=== PATIENT | female | born 1940 | race Caucasian/White ===

== ENCOUNTER 2021-12-28 23:13 | Inpatient (IN) ==
[2021-12-28] MEDS ORDERED: ONDANSETRON INJ 2 MG/ML 2 ML VIAL IV STA (23:36)
[2021-12-28] MEDS ORDERED: SODIUM CHLORIDE 0.9% 500 ML IV STA (23:36)
[2021-12-28] MEDS ORDERED: ACETAMINOPHEN 65 ML IV ONE (23:37)
[2021-12-28 23:48] LABS: Basophils # (auto) 0.09 K/uL (0-0.2); Basophils % (auto) 0.6 %; Eosinophils # (auto) 0.14 K/uL (0-0.50); Eosinophils % (auto) 0.9 %; Hematocrit (blood only) 42.4 % (34.1-44.9); Hemoglobin 14.6 g/dl (12.0-16.0); Immature Granulocytes # (auto) 0.05 K/uL (0.00-0.02); Immature Granulocytes % (auto) 0.3 %; Lymphocytes # (auto) 1.77 K/uL (1.2-3.4); Mean Corpuscular Hemoglobin 30.5 pg (25.0-34.0); Mean Corpuscular Hgb Conc 34.4 g/dL (32.0-36.0); Mean Corpuscular Volume 88.5 fL (80.0-100.0); Mean Platelet Volume 9.6 fL (9.4-12.3); Monocytes % (auto) 6.8 %; Neutrophils # (auto) 11.73 K/uL (1.4-6.5); Neutrophils % (auto) 79.4 %; Platelet Count 280 K/uL (130-400); RDW Coefficient of Variation 11.9 % (11.5-14.5); Red Blood Count 4.79 M/uL (3.93-5.22); White Blood Count 14.78 K/ul (4.8-10.8)
--- NOTE | 2021-12-28 23:51 | Emergency Department Note ---
History of Present Illness General Chief complaint: Abdominal Pain Stated complaint: ABDOMINAL PAIN, VOMITING, POSSIBLE INTESTINE BLOCK Time Seen by Provider: 12/28/21 23:28 History of Present Illness Maximum Pain Intensity: 5 This 81-year-old presents to the ER complaining of abdominal pain concerns for another bowel obstruction Location: Abdomen Quality: Painful Severity: Moderate Duration: Today Timing: Today Context: Patient was concerned and came in Modifying factors: better with rest; worse with activity patient states she had 2 other bowel obstructions. She is required surgery for both. She had a prior hysterectomy. Patient denies chest pain, dyspnea, feve rs, diarrhea. Past Med/Surg History Medical History A-fib High blood pressure Surgical History History of hysterectomy Social History Smoking Status: Never smoker Feels Safe at Home: Yes Review of Systems A total of 10 systems reviewed and were otherwise negative Physical Exam Vital Signs Vital Signs - 24 hr 12/28/21 23:17 12/29/21 00:55 12/29/21 00:56 Temperature 35.6 C L Temperature Source Temporal Artery Scan Pulse Rate 117 H Pulse Rate [Apical] 89 Respiratory Rate 18 16 Respiratory Effort / Characteristics Non-Labored Spontaneous Non-Labored Spontaneous Respiratory Depth Normal Normal Blood Pressure 161/99 H Blood Pressure [Left Arm] 152/82 H Blood Pressure Mean 119 Blood Pressure Mean [Left Arm] 105 Pulse Oximetry 95 96 97 Oxygen Delivery Method Room Air Room Air Room Air Sepsis Recent Fever Within 48 Hours No Sepsis New/Unexplained Change in Mental Status No Sepsis Action Taken by Nursing No Action Required 12/29/21 01:00 Temperature Temperature Source Pulse Rate 85 Pulse Rate [Apical] Respiratory Rate 12 Respiratory Effort / Characteristics Respiratory Depth Blood Pressure 142/85 H Blood Pressure [Left Arm] Blood Pressure Mean 104 Blood Pressure Mean [Left Arm] Pulse Oximetry 95 Oxygen Delivery Method Room Air Sepsis Recent Fever Within 48 Hours Sepsis New/Unexplained Change in Mental Status Sepsis Action Taken by Nursing VITALS: Vitals are noted on the nurse's note and reviewed by myself. Vital signs reviewed. GENERAL: Elderly female with her , in no acute distress, nondiaphoretic, well-developed well-nourished. SKIN: The skin was without rashes, erythema, edema, or bruising. There is no tenting of the skin. Capillary reflex less than 2 seconds. HEAD: Normocephalic atraumatic. EARS: External auditory canals clear, EYES: Pupils equal round and reactive to light and accommodation. Conjunctivae without injection, sclerae without icterus. Extraocular movements intact. NOSE: Patent, turbinates without inflammation or discharge. MOUTH: Mucous membranes moist. Pharynx without erythema or exudate. Uvula midline. Airway patent. Tongue does not deviate. NECK: Supple without nuchal rigidity. No lymphadenopathy. No thyromegaly. Cervical spine is nontender. No JVD. HEART: Regular rate and rhythm LUNGS: Clear to auscultation bilaterally without wheezes, rales or rhonchi. No retractions or accessory muscle use. ABDOMEN: Positive bowel sounds x 4. Normal tympanic percussion. Soft, diffuse tenderness, without masses or organomegaly. Way sign negative. No guarding or rebound tenderness. No CVA tenderness MUSCULOSKELETAL: No muscle atrophy, erythema, or edema noted. NEURO: Patient was alert and oriented to person place and time. Normal sensation to light and sharp touch. No focal neurological deficits. Course Administered Medications Discontinued Medications Sodium Chloride (Nss) 500 mls @ 999 mls/hr IV .Q31M STA Stop: 12/29/21 00:06 Last Infusion: 12/29/21 01:12 Dose: 0 mls/hr Documented By: Admin: 12/29/21 00:20 Dose: 999 mls/hr Documented By: DANY Acetaminophen (Ofirmev) 65 mls @ 200 mls/hr IV NOW ONE; Protocol Stop: 12/28/21 23:56 Last Infusion: 12/29/21 01:12 Dose: 0 mls/hr Documented By: Admin: 12/29/21 00:39 Dose: 200 mls/hr Documented By: DANY Ondansetron HCl (Ondansetron Inj 2 Mg/Ml 2 Ml Vial) 4 mg IV NOW STA Stop: 12/28/21 23:37 Last Admin: 12/28/21 23:48 Dose: 4 mg Documented By: DANY Medical Decision Making Medical Records Attestation: I reviewed the patient's medical records. Home Medications Current Medication List: was personally reviewed by me Laboratory Data Attestation: I reviewed the patient's lab results. Result diagrams: 12/28/21 23:30 12/28/21 23:30 Lab Results 12/28/21 12/28/21 12/29/21 Range/Units 23:30 23:30 00:38 WBC 14.78 H (4.8-10.8) K/ul RBC 4.79 (3.93-5.22) M/uL Hgb 14.6 (12.0-16.0) g/dl Hct 42.4 (34.1-44.9) % MCV 88.5 (80.0-100.0) fL MCH 30.5 (25.0-34.0) pg MCHC 34.4 (32.0-36.0) g/dL RDW Std Deviation 39.0 (36.4-46.3) fL RDW Coeff of Lisa 11.9 (11.5-14.5) % Plt Count 280 (130-400) K/uL MPV 9.6 (9.4-12.3) fL Immature Gran % (Auto) 0.3 % Neut % (Auto) 79.4 % Lymph % (Auto) 12.0 % [place] % (Auto) 6.8 % Eos % (Auto) 0.9 % Baso % (Auto) 0.6 % Neut # (Auto) 11.73 H (1.4-6.5) K/uL Lymph # (Auto) 1.77 (1.2-3.4) K/uL [place] # (Auto) 1.00 H (0.24-0.82) K/uL Eos # (Auto) 0.14 (0-0.50) K/uL Baso # (Auto) 0.09 (0-0.2) K/uL Immature Gran # (Auto) 0.05 H (0.00-0.02) K/uL Sodium 135 L (136-145) mmol/L Potassium 4.1 (3.5-5.1) mmol/L Chloride 96 L (98-107) mmol/L Carbon Dioxide 28 (21-32) mmol/L Anion Gap 11 (3-11) BUN 31 H (6-23) mg/dl Creatinine 1.16 (0.6-1.2) mg/dl Est Cr Clr Drug Dosing 25.9 ml/min Est GFR ( Amer) 50.4 ml/min Est GFR (Non-Af Amer) 43.5 ml/min BUN/Creatinine Ratio 26.7 H (10-20) Glucose 138 H (70-99(Fasting)) mg/dl Lactate 0.6 (0.4-2.0) mmol/L Calcium 10.0 (8.5-10.1) mg/dl Total Bilirubin 0.5 (0.2-1.0) mg/dl AST 18 (13-39) U/L ALT 13 (7-52) U/L Alkaline Phosphatase 114 H (34-104) U/L Total Protein 7.5 (6.0-8.3) gm/dl Albumin 4.5 (3.4-5.0) gm/dl Globulin 3.0 (2.5-4.0) gm/dl Albumin/Globulin Ratio 1.5 (0.9-2) Lipase 57 (11-82) U/L Imaging Data Attestation: I personally reviewed and interpreted this imaging study as follows: MDM Narrative Prior records/ancillary studies reviewed. Triage Nursing notes reviewed. Additional history obtained from family. The patient's history was concerning for abdominal pain. Differential diagnosis: Etiologies such as appendicitis, diverticulitis, PUD, biliary pathology, UTI, pancreatitis, obstruction, mesenteric ischemia, aortic pathology, infections, inflammatory bowel disease, renal colic, as well as others were entertained. Physical examination findings: As above. ER treatment provided: An order was placed for continuous cardiac monitoring. The monitor shows a rate of 60-1 50 with a sinus rhythm. IV fluids, Tylenol Patient declines NG tube, this was deferred to surgery On reassessment the patient felt better. Diagnostics interpreted by me: The labs revealed leukocytosis, negative lactic Imaging studies: CT ABDOMEN & PELVIS With Contrast: High-grade small bowel obstruction, consisting of dilated small bowel measuring up to 4.0 cm within the pelvis. Large anastomotic suture line noted in the right mid abdomen. Transition point within the mid abdomen at the level of the umbilicus on coronal image 44. Surgical evaluation recommended. Other findings: No focal hepatic lesion. Contracted gallbladder. Normal spleen, adrenal glands, and pancreas. No hydronephrosis or delayed nephrogram. Decompressed urinary bladder. Radiologist: Varghese Madden MD Consultation: A consultation was placed with the surgical team. The case was discussed and diagnostics were reviewed. The patient was evaluated in the ER for further treatment. Exam and history seem consistent with recurrent bowel obstruction. Surgery was consulted. Medicine was consulted. Patient will be admitted to the medical service. Lactic was negative. Mild leukocytosis. Patient was not actively vomiting. By the evaluation outlined above emergent etiologies such as appendicitis, diverticulitis, PUD, biliary pathology, UTI, pancreatitis, mesenteric ischemia, aortic pathology, infections, inflammatory bowel disease, renal colic, as well as others were deemed relatively unlikely. The pt informed about the findings as listed above. All questions were answered and pleased with the treatment. The chart was completed utilizing [employer] Speech voice recognition software. Grammatical errors, random word insertions, pronoun errors, and incomplete sentences are an occassional consequence of this system due to software limitations, ambient noise, and hardware issues. Any formal questions or concerns about the content, text, or information contained within the body of this dictation should be directly addressed to the physician medical record assistant for clarification. Impression & Plan Small bowel obstruction Discharge Plan Visit Data Chief Complaint: Abdominal Pain Stated Complaint: ABDOMINAL PAIN, VOMITING, POSSIBLE INTESTINE BLOCK ED Provider: Sky Sibley ED Midlevel Provider: Dixie Servin Discharge Problem: Small bowel obstruction Patient Disposition: Admitted As Inpatient Condition: Fair Forms Stand Alone Forms: [facility] Referrals Referrals: PCP,NO [Physician] -
[2021-12-29 00:01] LABS: Albumin Globulin Ratio 1.5 (0.9-2); Albumin Level 4.5 gm/dl (3.4-5.0); BUN Creatinine Ratio 26.7 (10-20); Bilirubin,Total 0.5 mg/dl (0.2-1.0); Creatinine Clr Calc Pharmacy 25.9 ml/min; Est GFR (African American) 50.4 ml/min; Est GFR (Non-African American) 43.5 ml/min; Potassium 4.1 mmol/L (3.5-5.1); Total Protein 7.5 gm/dl (6.0-8.3)
[2021-12-29] MEDS ORDERED: OPTIRAY 300 100mL IV ONE (00:54)
--- NOTE | 2021-12-29 02:29 | Surgery Consultation ---
Date of Consultation December 29, 2021 Assessment & Plan (1) Small bowel obstruction: I discussed with the treating emergency room clinician and she is having the patient admitted on the hospitalist service. From a surgical perspective we recommend proceeding as follows: Implement n.p.o. status Provide IV fluid for hydration Recommend placement of an NG tube to low continuous suction. I explained to the patient that this may help alleviate some of her abdominal bloating/symptomatology. Consideration can be given to removing the NG tube upon improvement of her abdominal exam and return of bowel function. Once NG tube has been removed and bowel function has returned diet can be advanced beginning with clear liquids Would recommend holding patient's Xarelto until it is certain the patient would not require any procedural intervention Provide analgesics Provide antiemetics Additional plans as directed by primary service Supervising Physician Co-Signing Physician Notes Patient seen and examined, labs and imaging reviewed, agree with above. 81-year-old female with history of multiple abdominal surgeries including 2 prior laparotomies with lysis of adhesions and a small bowel resection 1 year ago presented with a small bowel obstruction. NG tube was placed. She is currently afebrile stable vitals. Her abdomen is not painful and she has passed a small amount of flatus. She still feels blocked up and bloated. On exam she is nontender with mild distention. Large midline scar. WBC downtrending. CT personally reviewed and interpreted by myself and agree with the assessment of a small bowel obstruction without evidence of ischemia. We will continue with nonoperative management. Surgery will continue to follow. History of Present Illness Reason for Consultation: Small bowel obstruction History of Present Illness This is an 81-year-old female with an extensive abdominal surgical history. The patient presented to the emergency department secondary to feeling "bloated." Patient says that she was feeling fine on 12/28/2021 throughout the day but in the evening on the same day she began to feel bloated and experienced some nausea and vomiting. She said that she really did not have much in the way of abdominal pain. She said she did have a bowel movement on Sunday evening but since arrival to the emergency department she has not had any bowel movement or passed any flatus. She continues to have nausea vomiting since arrival to the emergency department. Patient does report that she had a colonoscopy most recently in 2012 and she believes they may have performed a polypectomy. Concerning previous surgeries the patient says in 2012 she underwent a hysterectomy which was complicated by bleeding which required abdominal reexploration. Patient says she subsequent developed a small bowel obstruction in 2013 that had to be managed surgically. She said that she did not require any resection of bowel or small bowel at that time. She says she had an additional small bowel obstruction in October 2020 at which time the patient had to be managed operatively and she believes they took out several inches of her small bowel at that time. She notes her previous surgeries were performed at [facility] in [place], [place]. In the emergency department the patient had labs and imaging which I independently reviewed. A CT scan of the abdomen pelvis showed findings concerning for high-grade small bowel obstruction. Patient had some dilated small bowel loops measuring up to 4 cm within the pelvis. There is a large anastomotic suture line noted in the right mid abdomen. The transition point of small bowel obstruction appeared to be in the mid abdomen at the level of the umbilicus. Patient's stomach also appeared to be distended and fluid-filled on the study. Labs include a CBC her white blood cell count was elevated at 14.7. Hemoglobin, hematocrit, and platelet count were normal. Chemistry profile showed sodium was 135 with a normal potassium. BUN was 31 with a creatinine of 1.1. Lactic acid level was not elevated. There is no significant elevation of LFTs other than a slight elevation of the alkaline phosphatase at 114. Lipase was normal. The patient does add that she has chronic kidney disease, stage III and is also treated for atrial fibrillation. For her atrial fibrillation she does take Xarelto and she did take it yesterday aborted. At the time of my interview the patient was resting comfortably in bed and she was in no distress. Home Medications Medication Instructions Recorded Confirmed Type digoxin 125 mcg (0.125 mg) tablet 125 mcg PO DAILY 12/29/21 12/29/21 History diltiazem HCl 360 mg 360 mg PO DAILY 12/29/21 12/29/21 History capsule,extended release 24 hr lisinopril 5 mg tablet 5 mg PO DAILY 12/29/21 12/29/21 History rivaroxaban 15 mg tablet (Xarelto) 15 mg PO QPM 12/29/21 12/29/21 History Patient History Medical History A-fib High blood pressure Surgical History History of hysterectomy Social History Smoking Status: Never smoker Hx Alcohol Use: No Hx Substance Use: No Preferred Language: Pashto Communication Ability: Effective Rack Puncher Required: No Beliefs That Will Affect Care: None Current Living Situation: Spouse Current Living Situation Comment: Lives in private home with Other Information That Helps Us Care for You: No Feels Safe at Home: Yes Safety Concerns: Feels Safe At This Time Assistive Devices: None Review of Systems Constitutional: no fever and no chills Eyes: no eye pain Ear, Nose, Mouth, Throat: no ear pain Respiratory: no cough Cardiovascular: no chest pain Gastrointestinal: as per Subjective / HPI, + nausea and + vomiting; no abdominal pain Genitourinary: no dysuria Musculoskeletal: no back pain Integumentary: no rash Neurologic: no localized weakness Physical Exam Constitutional: WD/WN, vitals as above Eyes: no conjunctival abnormality ENMT: Ears: no external ear abnormality Neck: trachea midline Respiratory: normal respiratory effort; no respiratory distress and no labored breathing Cardiovascular: Rate/Rhythm: + irregularly irregular Gastrointestinal (Abdomen): The patient had a well-healed midline incision in her abdomen. The patient's abdomen and had mild to moderate distention and was tympanic to percussion. There is no rebound tenderness or guarding. There is minimal to no pain with palpation. Musculoskeletal: No calf tenderness. Pedal pulses are palpable. Skin: no rashes Neurologic: moves all extremities Psychiatric: A+Ox3, euthymic affect Results & Data ([facility]) Vital Signs (Past 12 Hours) Vital Signs Temp Pulse Pulse Resp BP BP Pulse Ox 12/29/21 01:00 85 12 142/85 H 95 12/29/21 00:56 89 16 152/82 H 97 12/29/21 00:55 96 12/28/21 23:17 35.6 C L 117 H 18 161/99 H 95 O2 Del Method 12/29/21 01:00 Room Air 12/29/21 00:56 Room Air 12/29/21 00:55 Room Air 12/28/21 23:17 Room Air PG Care Time/CCT Total # of Minutes Spent Total Time Spent with Patient: Total time spent is greater than 50% in coordination of care (as documented) at patient's floor/unit and/or counseling patient: Coding Level of Care Code 65718 Inpt Consult Level 5 Diagnoses Small bowel obstruction K56.609
--- NOTE | 2021-12-29 04:31 | History and Physical Report ---
DATE OF ADMISSION: 12/29/2021. CHIEF COMPLAINT: Abdominal pain, small bowel obstruction. HISTORY OF PRESENT ILLNESS: An 81-year-old female with past medical history significant for pancreatic cyst, Lung nodule, chronic kidney disease stage III, history of hypertension, history of permanent atrial fibrillation, history of moderate mitral regurgitation, mild aortic regurgitation, moderate tricuspid regurgitation ,right ventricle, cardiac abnormality, asymptomatic proteinuria, osteoporosis, history of endometrial cancer, status post surgery, history of COVID-19, presents with abdominal pain. The patient had two surgeries for small bowel obstructions. After the second surgery, she moved to [place] with her to be close to her daughter. Symptoms started with a feeling of bloating of the abdomen and nausea. The patient was worried about obstruction and came to the hospital. CAT scan is showing a high-grade obstruction, seen by surgery. Recommended conservative management at this time. The patient denies any headache. No blurred visions. No neck pain. No sore throat. Always has some runny nose. No cough. No chest pain, no shortness of breath. Mild abdominal discomfort. She states she moved her bowels before she came to the hospital. Normal bladder movements. Ambulates okay. ALLERGIES: PROPOFOL. PAST MEDICAL HISTORY: As mentioned above. PAST SURGICAL HISTORY: Laparoscopic excision of a lesions in 2013 and 2020. In 2012, had total abdominal hysterectomy with bilateral salpingo-oophorectomy and omentectomy for endometrial cancer. MEDICATIONS: Digoxin 125 mcg p.o. daily, diltiazem 360 mg p.o. daily, lisinopril 5 mg p.o. daily, Xarelto 15 mg p.o. p.m. FAMILY HISTORY: Significant for cousin has breast cancer, father has colon cancer, mother has lung cancer. SOCIAL HISTORY: , no smoking, no alcohol, no drug use. REVIEW OF SYSTEMS: As per HPI. Rest of the review of systems is negative. PHYSICAL EXAMINATION: GENERAL: The patient is old and frail, not in acute distress. VITAL SIGNS: Temperature 35.6, pulse 90, respiratory rate 12, blood pressure 127/76, and oxygen 95% on room air. HEENT: Pupils equal, round, and reactive to light. Oral mucosa moist. NECK: No JVD. No masses. CARDIOVASCULAR: S1 and S2 heard. Regular rate and rhythm. No murmur, no gallop. RESPIRATORY SYSTEM: Normal AP diameter. No accessory muscle use. No wheezing, no crackles. ABDOMEN: Soft, bowel sounds present, nontender, no distention. CENTRAL NERVOUS SYSTEM: Cranial nerves II through XII are grossly intact, nonfocal. EXTREMITIES: No edema, no erythema. LABORATORY DATA: WBC 14.7, hemoglobin 14.6, hematocrit 42.4, platelets 280. Sodium 135, potassium 4.1, chloride 96, bicarbonate 28, BUN 31, creatinine 1.1, serum glucose 138, lactate 0.6, calcium 10, total bilirubin 0.5, AST 18, ALT 13, alkaline phosphatase 114. Lipase 57. SARS-CoV-2 rapid test negative. IMAGING DATA: CT scan of the abdomen and pelvis with contrast showed high-grade small-bowel obstruction consistent with dilated small bowel measuring up to 4 cm within the pelvis. ASSESSMENT AND PLAN: This is an 81-year-old female who presents with abdominal pain and nausea and found to have small bowel obstruction. 1. High-grade small bowel obstruction with history of abdominal surgeries, history of surgery for bowel obstruction 2 times. Seen by surgery in the ER. Ordered NG tube, will keep her n.p.o., IV fluids, IV antiemetics, IV pain medication p.r.n. Closely monitor in the hospital. 2. History of permanent atrial fibrillation: Currently n.p.o. The patient is on diltiazem and digoxin at home. We will place her on IV Lopressor p.r.n. and closely monitor. Restart p.o. medication when able to. Holding Xarelto in anticipation of any procedures. 3. Hypertension: On diltiazem and lisinopril. Currently NPO. IV Lopressor p.r.n. Will monitor the blood pressure. 4. History of valvular heart disease with moderate mitral regurgitation and moderate tricuspid regurgitation: Will monitor for any volume overload. 5. History of endometrial cancer: Status post surgery. 6. Deep venous thrombosis prophylaxis: Currently on sequential compression devices. DISPOSITION: Closely monitor in the [employer]. PT/OT prior to discharge. Social service to help with discharge planning. Job ID: [id number] [facility]
[2021-12-29] MEDS ORDERED: METOPROLOL TARTRATE 1 MG/ML VIAL IV PRN (05:12)
[2021-12-29] MEDS ORDERED: NITROGLYCERIN SL 0.4 MG/TAB TAB SL PRN (05:12)
[2021-12-29] MEDS ORDERED: ONDANSETRON INJ 2 MG/ML 2 ML VIAL IV PRN (05:12)
[2021-12-29] MEDS: HYDROmorphone INJ 0.5 MG/0.5 ML SYR IV PRN ×3 (05:52→14:33)
[2021-12-29] MEDS: D5W AND 1/2NSS 1,000 ML IV SCH ×2 (05:54→15:20)
[2021-12-29 07:05] LABS: Appearance Urine Clear (Clear); Bacteria Urine Automated Negative (Negative); Bilirubin Urine Negative (Negative); Blood Urine Negative (Negative); Color Urine Yellow; Glucose Urine UA Negative (Negative); Ketones Urine Trace (Negative); Leukocyte Esterase Urine Negative (Negative); Nitrite Urine Negative (Negative); RBC Urine Automated 0-4 /hpf (0-4); Specific Gravity Urine > 1.045 (1.000-1.030); Urobilinogen Urine Negative (Negative)
[2021-12-29 07:10] LABS: Protein Urine Trace (Negative)
[2021-12-29 08:43] LABS: Basophils # (auto) 0.05 K/uL (0-0.2); Basophils % (auto) 0.4 %; Eosinophils # (auto) 0.12 K/uL (0-0.50); Hematocrit (blood only) 41.2 % (34.1-44.9); Immature Granulocytes # (auto) 0.04 K/uL (0.00-0.02); Immature Granulocytes % (auto) 0.3 %; Lymphocytes # (auto) 0.86 K/uL (1.2-3.4); Lymphocytes % (auto) 7.5 %; Mean Corpuscular Hemoglobin 30.9 pg (25.0-34.0); Mean Corpuscular Volume 90.9 fL (80.0-100.0); Mean Platelet Volume 9.5 fL (9.4-12.3); Monocytes # (auto) 0.83 K/uL (0.24-0.82); Monocytes % (auto) 7.2 %; Neutrophils # (auto) 9.63 K/uL (1.4-6.5); Neutrophils % (auto) 83.6 %; Platelet Count 244 K/uL (130-400); RDW Coefficient of Variation 12.1 % (11.5-14.5); Red Blood Count 4.53 M/uL (3.93-5.22); White Blood Count 11.53 K/ul (4.8-10.8)
[2021-12-29 09:10] LABS: BUN Creatinine Ratio 25.5 (10-20); Calcium 8.8 mg/dl (8.5-10.1); Est GFR (African American) 58.9 ml/min; Est GFR (Non-African American) 50.8 ml/min; Potassium 4.3 mmol/L (3.5-5.1)
--- NOTE | 2021-12-29 09:24 | CT Scan Report ---
CT SCAN OF THE ABDOMEN AND PELVIS WITH IV CONTRAST CLINICAL HISTORY: Generalized abdominal pain. COMPARISON STUDY: No priors. TECHNIQUE: Following the IV administration of 93 cc of Optiray 300, CT scan of the abdomen and pelvi s is performed from the lung bases to the proximal femora. Images are reviewed in the axial, sagittal , and coronal planes. IV contrast was administered without complication. A dose lowering technique wa s utilized adhering to the principles of ALARA. The examination is degraded by streak artifact from t he arms which could not be elevated above the abdomen. CT DOSE: 349.44 mGy.cm FINDINGS: Lung bases: The heart is enlarged and without pericardial effusion. A 4 mm right lower lobe pulmonary nodule is seen on image #6. A calcified granuloma seen at the left lung base. The lung bases are oth erwise clear noting bibasilar scarring/atelectasis. Liver: The contrast-enhanced liver is normal in size, contour, and attenuation. There is no intrahepa tic biliary ductal dilatation. The hepatic veins and portal veins are patent. Gallbladder: Unremarkable. Spleen: Normal in size and attenuation. Pancreas: There are 2 cystic pancreatic lesions measuring up to 11 mm. These are along the course of the pancreatic duct and are typical for small sidebranch IPMNs. A simple appearing 1.5 cm cystic focu s is seen adjacent to the distal pancreatic body on image #108. The pancreas is otherwise normal as i sulma. Adrenal glands: Unremarkable. Kidneys: The contrast enhanced kidneys demonstrate cortical atrophy and are without hydronephrosis. T he kidneys enhance symmetrically. Abdominal vasculature: The abdominal aorta is normal in course and caliber noting mild atheroscleroti c calcification. There is high-grade stenosis near complete occlusion of the left internal iliac barak ry seen on image #264. Bowel: The stomach and small bowel loops are distended and fluid-filled. Small bowel loops measure up to 4.4 cm diameter. A focal transition point is seen in the midline upper pelvis on image #220. The distal small bowel and colon are decompressed, the appearance is consistent with a small bowel obstru ction. No focally thick-walled small bowel loops are identified. There is no pneumatosis intestinalis or portal venous gas. Interloop fluid is noted. A small bowel anastomosis is noted in the right lowe r quadrant. There is focal dilatation of the anastomotic site which measures up to 5.3 cm in diameter . This may be related to denervation, and the anastomosis does not represent the site of obstruction. There are scattered colonic diverticula without CT evidence of acute diverticulitis. The appendix is not visualized. Peritoneum: There is trace perihepatic ascites, as well as a small volume of free fluid in the pelvis . No intraperitoneal free air is seen. Lymphadenopathy: None. Pelvic viscera: The bladder is normal as visualized. The uterus is surgically absent. No adnexal lesi on is seen. Skeletal structures: The skeletal structures are osteopenic. There is a mild and chronic-appearing daniels perior endplate compression deformity of L4. Mild lumbosacral spondylosis is observed. Degenerative c hange and partial fusion is noted in the sacroiliac joints. No lytic or blastic lesions are seen. IMPRESSION: 1. Findings are consistent with a high-grade small bowel obstruction as detail above. A transition po int is identified in the pelvis and this is likely in the basis of adhesions. 2. There is trace interloop fluid and a small volume of abdominopelvic ascites. 3. No intraperitoneal free air is seen. No focal hepatic or polyps identified. There is no pneumatosi s intestinalis or portal venous gas. 4. Additional findings as above. ACT 112: Negative or not required by law. Electronically signed by: Nathaniel Saleh M.D. 12/29/2021 9:23 AM
--- NOTE | 2021-12-29 09:59 | XRay Report ---
KUB CLINICAL HISTORY: ngt placement COMPARISON STUDY: CT of the abdomen and pelvis performed earlier today. FINDINGS: The nasogastric tube is coiled within the esophagus on the initial image. The tip of the na sogastric tube is within the body of the stomach on the second image and appropriately positioned. Sm all bowel dilatation is partially imaged on this examination. Contrast within the collecting systems is from recent contrast-enhanced CT. IMPRESSION: Appropriately positioned nasogastric tube with tip within the body of the stomach. ACT 112: Negative or not required by law. Electronically signed by: Charles Dobbs M.D. 12/29/2021 9:58 AM
--- NOTE | 2021-12-29 14:01 | Hospitalist Progress Note ---
Date of Service December 29, 2021 Assessment & Plan (1) Small bowel obstruction: Plan: H/o SBO in the past and two surgeries to lyse adhesions. Improved with NG tube in place and no output for most of today, +flatus, no nausea and +BS. Clamp tube overnight and monitor in am. KUB in am. (2) A-fib: Plan: Held PO [id number] daily and digoxin. Will monitor on telemetry and treat with parenteral medications as needed for heart rate control. Xarelto is held. Will plan to start heparin if unable to get her eating again soon. (3) DVT prophylaxis: Plan: Xarelto-will transition to heparin soon SCDs/ambulating in the hallways Full Code Dispo-cont hospitalization -- at bedside and was updated. Kelli Alarcon DO [facility] Hospitalist Admission and Anticipated Discharge Date Admission Date: December 29, 2021 Subjective 81 yo F presented with high grade SBO NG tube placed overnight No further output this am on LIS Denies nausea, fevers, chills +sore throat Review of Systems Review of Systems: All systems were reviewed and negative except as indicated on subjective above. Physical Exam Physical Exam: CONSTITUTIONAL: WNWD, vitals as above, generally well- appearing, NAD EYES: normal conjunctivae, no scleral icterus, ENT: external ear and nose normal, MMM, NG tube in place to LIS NECK: trachea midline RESPIRATORY: clear to auscultation bilaterally, no crackles, rales or wheezes, normal respiratory effort CARDIOVASCULAR: regular rate and rhythm, S1 and 2 heard without murmurs, gallops or rubs, no JVD, no peripheral edema CHEST: inspection of chest was normal GASTROINTESTINAL: soft, nontender, ND, no guarding, +BS MUSCULOSKELETAL: strength 5/5 throughout, head is normocephalic and atraumatic SKIN: warm and dry NEUROLOGIC: CN 2-12 grossly intact, no sensory deficit, normal cognition, normal speech, no tremor PSYCHIATRIC: alert cooperative and oriented to person, place and time. Euthymic mood, makes good eye contact, language grossly intact, recent and remote memory grossly intact. Results & Data Results & Data ([facility]) Vital Signs (Past 12 Hours) Vital Signs Temp Pulse Pulse Resp BP BP Pulse Ox 12/29/21 11:10 36.4 C L 73 16 110/70 97 12/29/21 07:50 36.3 C L 81 18 117/70 97 12/29/21 07:31 86 12/29/21 05:15 81 12/29/21 05:12 36.5 C 12/29/21 05:12 12/29/21 05:12 36.5 C 84 20 93 12/29/21 04:30 89 19 97 12/29/21 04:00 105 H 26 H 140/91 98 12/29/21 03:48 106 H 23 145/99 H 98 O2 Del Method 12/29/21 11:10 Room Air 12/29/21 07:50 Room Air 12/29/21 07:31 12/29/21 05:15 12/29/21 05:12 12/29/21 05:12 Room Air 12/29/21 05:12 Room Air 12/29/21 04:30 Room Air 12/29/21 04:00 Room Air 12/29/21 03:48 Room Air Laboratory Results Short CBC 12/28/21 12/29/21 Range/Units 23:30 08:09 WBC 14.78 H 11.53 H (4.8-10.8) K/ul Hgb 14.6 14.0 (12.0-16.0) g/dl Hct 42.4 41.2 (34.1-44.9) % Plt Count 280 244 (130-400) K/uL [facility] 12/28/21 12/29/21 23:30 08:09 Sodium 135 L 136 Potassium 4.1 4.3 Chloride 96 L 102 Carbon Dioxide 28 28 BUN 31 H 26 H Creatinine 1.16 1.02 Glucose 138 H 141 H Calcium 10.0 8.8 Liver Function 12/28/21 Range/Units 23:30 Total Bilirubin 0.5 (0.2-1.0) mg/dl AST 18 (13-39) U/L ALT 13 (7-52) U/L Alkaline Phosphatase 114 H (34-104) U/L Albumin 4.5 (3.4-5.0) gm/dl Urine 12/29/21 Range/Units 06:10 Urine Color Yellow Urine Appearance Clear (Clear) Urine pH 8.0 H (4.5-7.5) Ur Specific [place] > 1.045 H (1.000-1.030) Urine Protein Trace H (Negative) Urine Glucose (UA) Negative (Negative) Diagnostic Findings Abdomen/Pelvis CT 12/28/21 23:36 CT SCAN OF THE ABDOMEN AND PELVIS WITH IV CONTRAST CLINICAL HISTORY: Generalized abdominal pain. COMPARISON STUDY: No priors. TECHNIQUE: Following the IV administration of 93 cc of Optiray 300, CT scan of the abdomen and pelvis is performed from the lung bases to the proximal femora. Images are reviewed in the axial, sagittal, and coronal planes. IV contrast was administered without complication. A dose lowering technique was utilized adhering to the principles of ALARA. The examination is degraded by streak artifact from the arms which could not be elevated above the abdomen. CT DOSE: 349.44 mGy.cm FINDINGS: Lung bases: The heart is enlarged and without pericardial effusion. A 4 mm right lower lobe pulmonary nodule is seen on image #6. A calcified granuloma seen at the left lung base. The lung bases are otherwise clear noting bibasilar scarring/atelectasis. Liver: The contrast-enhanced liver is normal in size, contour, and attenuation. There is no intrahepatic biliary ductal dilatation. The hepatic veins and portal veins are patent. Gallbladder: Unremarkable. Spleen: Normal in size and attenuation. Pancreas: There are 2 cystic pancreatic lesions measuring up to 11 mm. These are along the course of the pancreatic duct and are typical for small sidebranch IPMNs. A simple appearing 1.5 cm cystic focus is seen adjacent to the distal pancreatic body on image #108. The pancreas is otherwise normal as imaged. Adrenal glands: Unremarkable. Kidneys: The contrast enhanced kidneys demonstrate cortical atrophy and are without hydronephrosis. The kidneys enhance symmetrically. Abdominal vasculature: The abdominal aorta is normal in course and caliber noting mild atherosclerotic calcification. There is high-grade stenosis near complete occlusion of the left internal iliac artery seen on image #264. Bowel: The stomach and small bowel loops are distended and fluid-filled. Small bowel loops measure up to 4.4 cm diameter. A focal transition point is seen in the midline upper pelvis on image #220. The distal small bowel and colon are decompressed, the appearance is consistent with a small bowel obstruction. No focally thick-walled small bowel loops are identified. There is no pneumatosis intestinalis or portal venous gas. Interloop fluid is noted. A small bowel anastomosis is noted in the right lower quadrant. There is focal dilatation of the anastomotic site which measures up to 5.3 cm in diameter. This may be related to denervation, and the anastomosis does not represent the site of obstruction. There are scattered colonic diverticula without CT evidence of acute diverticulitis. The appendix is not visualized. Peritoneum: There is trace perihepatic ascites, as well as a small volume of free fluid in the pelvis. No intraperitoneal free air is seen. Lymphadenopathy: None. Pelvic viscera: The bladder is normal as visualized. The uterus is surgically absent. No adnexal lesion is seen. Skeletal structures: The skeletal structures are osteopenic. There is a mild and chronic-appearing superior endplate compression deformity of L4. Mild lumbosacral spondylosis is observed. Degenerative change and partial fusion is noted in the sacroiliac joints. No lytic or blastic lesions are seen. IMPRESSION: 1. Findings are consistent with a high-grade small bowel obstruction as detail above. A transition point is identified in the pelvis and this is likely in the basis of adhesions. 2. There is trace interloop fluid and a small volume of abdominopelvic ascites. 3. No intraperitoneal free air is seen. No focal hepatic or polyps identified. There is no pneumatosis intestinalis or portal venous gas. 4. Additional findings as above. ACT 112: Negative or not required by law. Electronically signed by: Nathaniel Saleh M.D. 12/29/2021 9:23 AM KUB X-Ray 12/29/21 03:47 KUB CLINICAL HISTORY: ngt placement COMPARISON STUDY: CT of the abdomen and pelvis performed earlier today. FINDINGS: The nasogastric tube is coiled within the esophagus on the initial image. The tip of the nasogastric tube is within the body of the stomach on the second image and appropriately positioned. Small bowel dilatation is partially imaged on this examination. Contrast within the collecting systems is from recent contrast-enhanced CT. IMPRESSION: Appropriately positioned nasogastric tube with tip within the body of the stomach. ACT 112: Negative or not required by law. Electronically signed by: Charles Dobbs M.D. 12/29/2021 9:58 AM Medications Administered Current Inpatient Medications Hydromorphone HCl (Hydromorphone Inj 0.5 Mg/0.5 Ml Syr) 0.5 mg IV Q3H PRN PRN Reason: Pain Stop: 01/12/22 05:11 Last Admin: 12/29/21 09:46 Dose: 0.5 mg Dextrose/Sodium Chloride (D5w And 1/2nss) 1,000 mls @ 100 mls/hr IV .Q10H RUY Stop: 01/28/22 05:11 Last Admin: 12/29/21 05:54 Dose: 100 mls/hr Nitroglycerin (Nitroglycerin Sl 0.4 Mg/Tab Tab) 0.4 mg SL UD PRN PRN Reason: Chest Pain Stop: 01/28/22 05:11 Ondansetron HCl (Ondansetron Inj 2 Mg/Ml 2 Ml Vial) 4 mg IV Q6H PRN PRN Reason: Nausea Stop: 01/28/22 05:11
[2021-12-29] MEDS ORDERED: CHLORASEPTIC 1.4% SOLN 180 ML BTL MT PRN (15:16)
[2021-12-30] MEDS: D5W AND 1/2NSS 1,000 ML IV SCH (01:54)
[2021-12-30] MEDS ORDERED: METOPROLOL TARTRATE 1 MG/ML VIAL IV STA (03:50)
[2021-12-30] MEDS ORDERED: SODIUM CHLORIDE 0.9% 500 ML IV ONE (03:50)
[2021-12-30] MEDS ORDERED: Patient's ALLERGY Info needs ENTERED STA (03:53)
--- NOTE | 2021-12-30 04:30 | Communication Note ---
Date of Service: December 30, 2021 Patient noted to be in rapid A. fib as per RN. Cardiac rate 150s, heart rate 120s to 130s. Patient refusing beta-dinesh administration at med telemetry. Patient prefers Cardizem. AP Uncontrolled A. fib PCU transfer to facilitate Cardizem bolus/infusion (above chronotropic agent cannot be administered at the med telemetry floor as per hospital policy) Will relay to AM provider.
[2021-12-30 04:32] LABS: Basophils # (auto) 0.04 K/uL (0-0.2); Basophils % (auto) 0.5 %; Eosinophils # (auto) 0.16 K/uL (0-0.50); Eosinophils % (auto) 2.2 %; Hematocrit (blood only) 40.3 % (34.1-44.9); Hemoglobin 13.7 g/dl (12.0-16.0); Immature Granulocytes # (auto) 0.03 K/uL (0.00-0.02); Immature Granulocytes % (auto) 0.4 %; Lymphocytes # (auto) 0.98 K/uL (1.2-3.4); Lymphocytes % (auto) 13.2 %; Mean Corpuscular Hemoglobin 30.8 pg (25.0-34.0); Mean Corpuscular Volume 90.6 fL (80.0-100.0); Mean Platelet Volume 9.3 fL (9.4-12.3); Monocytes # (auto) 0.71 K/uL (0.24-0.82); Monocytes % (auto) 9.6 %; Neutrophils # (auto) 5.49 K/uL (1.4-6.5); Neutrophils % (auto) 74.1 %; Platelet Count 233 K/uL (130-400); RDW Standard Deviation 39.9 fL (36.4-46.3); Red Blood Count 4.45 M/uL (3.93-5.22); White Blood Count 7.41 K/ul (4.8-10.8)
[2021-12-30] MEDS: HYDROmorphone INJ 0.5 MG/0.5 ML SYR IV PRN (04:36)
[2021-12-30] MEDS ORDERED: DIGOXIN 250 MCG in SYRINGE 9 ML IV ONE (04:45)
[2021-12-30 04:54] LABS: BUN Creatinine Ratio 17.1 (10-20); Est GFR (African American) 84.1 ml/min; Est GFR (Non-African American) 72.5 ml/min; Magnesium 1.7 mg/dl (1.7-2.4); Potassium 3.7 mmol/L (3.5-5.1)
[2021-12-30] MEDS ORDERED: dilTIAZem HCl 5 MG/ML 5 ML VIAL IV STA (05:29)
[2021-12-30] MEDS ORDERED: LACTATED RINGER'S 1,000 ML IV SCH (05:45)
[2021-12-30] MEDS ORDERED: dilTIAZem HCL 125 MG in DEXTROSE 5% 100 ML IV SCH (05:45)
[2021-12-30] MEDS: POTASSIUM CHLORIDE / WTR 10 MEQ/100 ML PLCT IV SCH ×4 (06:28→12:17)
[2021-12-30] MEDS: MAGNESIUM SULFATE / D5W 1 GM/100 ML BAG IV SCH ×2 (06:28→07:35)
--- NOTE | 2021-12-30 07:58 | Surgery Progress Note ---
Date of Service December 30, 2021 Assessment & Plan (1) Small bowel obstruction: Plan: Patient here with SBO...transferred to PCU this AM for afib receiving IV dilt She is feeling improvement in her abdominal symptoms. currently denies pain/n/v She is continuing to pass some flatus, no BM yet. On exam abdomen is soft/nontender NGT was clamped overnight and she has not had any worsening symptoms Ordered KUB this AM, if improved can consider possible removal and start of clears Will check on pt later this morning. 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 Transferred to PCU overnight for A. fib with RVR. She has been passing flatus and has no abdominal pain or distention. NG tube been clamped for quite some time. On exam she is afebrile stable vitals. Abdomen soft, nontender, nondistended. KUB with resolution of small bowel obstruction. We will remove NG tube and start on clear liquids. Slowly advance to low fiber diet. Dr. Carrion covering over the weekend. Subjective Pt is feeling well from an abdominal standpoint. Currently denies n/v/abdominal pain. Says she is passing some flatus. No BM yet. Physical Exam Physical Exam: awake/alert, no distress Respiratory: normal respiratory effort Gastrointestinal (Abdomen): Inspection/Auscultation: + abdominal surgical scar Percussion/Palpation: abdomen soft; abdomen nontender Results & Data ([facility]) Vital Signs (Past 12 Hours) Vital Signs Temp Pulse Resp BP Pulse Ox O2 Del Method 12/30/21 06:47 36.6 C 97 H 16 145/76 H 94 Room Air 12/30/21 05:27 36.8 C 123 H 16 156/80 H 95 Room Air 12/30/21 03:28 37.0 C 126 H 18 154/95 H 97 Room Air 12/29/21 23:15 37.0 C 109 H 20 155/89 H 97 Room Air PG Care Time/CCT Total # of Minutes Spent Total Time Spent with Patient: Total time spent is greater than 50% in coordination of care (as documented) at patient's floor/unit and/or counseling patient: Coding Level of Care Code 19446 Subseq Hosp Care Lvl 1 Diagnoses Small bowel obstruction K56.609
[2021-12-30] MEDS ORDERED: Heparin IV Adult Wt-Based Low-Dose *NO* Bolus Protocol IV SCH (09:46)
--- NOTE | 2021-12-30 10:40 | XRay Report ---
KUB HISTORY: Small bowel obstruction. Follow-up. COMPARISON: KUB 12/29/2021. FINDINGS: Nasogastric tube terminates in the body of the stomach. No dilated loops of small bowel eduarda ntified at this time. There is moderate well-formed stool seen within the colon. Suture material and surgical clips are seen within the pelvis. No renal calculi. No ureteral calculi. No pneumoperitoneu m or pneumatosis. IMPRESSION: 1. Nasogastric tube terminates in the stomach. 2. Interval decompression of the small bowel loops compared to the prior study. ACT 112: Negative or not required by law. Electronically signed by: Stepan Baer M.D. 12/30/2021 10:39 AM
[2021-12-30 11:30] LABS: INR 1.1 (0.9-1.1); Partial Thromboplastin Time 27.5 Seconds (21.0-31.0); Prothrombin Time 11.4 Seconds (9.0-12.0)
[2021-12-30] MEDS: HEPARIN SODIUM/DEXTROSE 25,000 UNITS/500 ML BAG IV SCH (11:51)
[2021-12-30] MEDS ORDERED: METOPROLOL TARTRATE 1 MG/ML VIAL IV SCH (12:00)
[2021-12-30] MEDS: dilTIAZem ER 180 MG CAPCR PO SCH (14:01)
--- NOTE | 2021-12-30 15:31 | Hospitalist Progress Note ---
Date of Service December 30, 2021 Assessment & Plan (1) Small bowel obstruction: Plan: H/o SBO in the past and two surgeries to lyse adhesions. Improved with NG tube in place and no issues with tube clamped overnight, +flatus, no nausea and +BS. Removed NG tube and advance diet to clears. Will advance her diet slowly given her history. (2) A-fib: Plan: Atrial fibrillation with rapid ventricular response overnight. Moved to PCU and started on diltiazem drip, dig IV given. Improved HR to 100s today. She is asymptomatic. Transitioning her back to PO medications now and will continue heparin drip for the time being until she is reliably tolerating food, then will plan to restart her Xarelto. (3) DVT prophylaxis: Plan: heparin SCDs/ambulating in the hallways Full Code Dispo-cont hospitalization -- at bedside and was updated. Kelli Alarcon DO [facility] Hospitalist Admission and Anticipated Discharge Date Admission Date: December 29, 2021 Subjective 81 yo F presented with high grade SBO Tube clamped overnight Doing well today Denies nausea or abdominal pain Improvement on KUB this am Review of Systems Review of Systems: All systems were reviewed and negative except as indicated on subjective above. Physical Exam Physical Exam: CONSTITUTIONAL: WNWD, vitals as above, generally well- appearing, NAD EYES: normal conjunctivae, no scleral icterus, ENT: external ear and nose normal, MMM, NG tube in place NECK: trachea midline RESPIRATORY: clear to auscultation bilaterally, no crackles, rales or wheezes, normal respiratory effort CARDIOVASCULAR: regular rate and rhythm, S1 and 2 heard without murmurs, gallops or rubs, no JVD, no peripheral edema CHEST: inspection of chest was normal GASTROINTESTINAL: soft, nontender, ND, no guarding, +BS MUSCULOSKELETAL: strength 5/5 throughout, head is normocephalic and atraumatic SKIN: warm and dry NEUROLOGIC: CN 2-12 grossly intact, no sensory deficit, normal cognition, normal speech, no tremor PSYCHIATRIC: alert cooperative and oriented to person, place and time. Euthymic mood, makes good eye contact, language grossly intact, recent and remote memory grossly intact. Results & Data Results & Data ([facility]) Vital Signs (Past 12 Hours) Vital Signs Temp Pulse Pulse Pulse Resp BP Pulse Ox 12/30/21 15:22 96 H 12/30/21 12:00 36.7 C 88 20 156/74 H 96 12/30/21 06:47 36.6 C 97 H 16 145/76 H 94 12/30/21 05:27 36.8 C 123 H 16 156/80 H 95 O2 Del Method 12/30/21 15:22 12/30/21 12:00 Room Air 12/30/21 06:47 Room Air 12/30/21 05:27 Room Air Laboratory Results Short CBC 12/30/21 Range/Units 04:01 WBC 7.41 (4.8-10.8) K/ul Hgb 13.7 (12.0-16.0) g/dl Hct 40.3 (34.1-44.9) % Plt Count 233 (130-400) K/uL BMP 12/30/21 04:01 Sodium 135 L Potassium 3.7 Chloride 102 Carbon Dioxide 29 BUN 13 Creatinine 0.76 Glucose 116 H Calcium 9.0 Diagnostic Findings KUB X-Ray 12/30/21 07:00 KUB HISTORY: Small bowel obstruction. Follow-up. COMPARISON: KUB 12/29/2021. FINDINGS: Nasogastric tube terminates in the body of the stomach. No dilated loops of small bowel identified at this time. There is moderate well-formed stool seen within the colon. Suture material and surgical clips are seen within the pelvis. No renal calculi. No ureteral calculi. No pneumoperitoneum or pneumatosis. IMPRESSION: 1. Nasogastric tube terminates in the stomach. 2. Interval decompression of the small bowel loops compared to the prior study. ACT 112: Negative or not required by law. Electronically signed by: Stepan Baer M.D. 12/30/2021 10:39 AM Medications Administered Current Inpatient Medications Digoxin (Digoxin 0.125 Mg Tab) 0.125 mg PO DAILY@1600 [facility] Stop: 01/29/22 15:59 Diltiazem HCl (Diltiazem Er 180 Mg Capcr) 360 mg PO QAM [facility] Stop: 01/29/22 12:14 Last Admin: 12/30/21 14:01 Dose: 360 mg Diltiazem HCl 125 mg/ Dextrose 125 mls @ 5 mls/hr IV .Q24H [facility]; Protocol Stop: 01/29/22 05:44 Last Titration: 12/30/21 12:18 Dose: 0 mg/hr, 0 mls/hr Heparin Sodium/Dextrose (Heparin Sodium/Dextrose) 25,000 units in 500 mls @ 11 mls/hr IV .Q24H [facility]; Protocol Stop: 01/29/22 10:44 Last Admin: 12/30/21 11:51 Dose: 550 units/hr, 11 mls/hr Nitroglycerin (Nitroglycerin Sl 0.4 Mg/Tab Tab) 0.4 mg SL UD PRN PRN Reason: Chest Pain Stop: 01/28/22 05:11 Ondansetron HCl (Ondansetron Inj 2 Mg/Ml 2 Ml Vial) 4 mg IV Q6H PRN PRN Reason: Nausea Stop: 01/28/22 05:11 Phenol (Chloraseptic 1.4% Soln 180 Ml Btl) 2 sprays MT Q4H PRN PRN Reason: sore throat Stop: 01/28/22 15:15 Last Admin: 12/30/21 02:30 Dose: 2 sprays
[2021-12-30] MEDS ORDERED: DIGOXIN 0.125 MG TAB PO SCH (16:00)
[2021-12-30 18:18] LABS: Partial Thromboplastin Ratio 1.3; Partial Thromboplastin Time 36.7 Seconds (21.0-31.0)
[2021-12-30] MEDS ORDERED: HEPARIN SOD (PORCINE) 1000 UNIT/ML IV ONE (18:43)
[2021-12-30] MEDS ORDERED: HEPARIN IV BOLUS 2,000 UNITS in SYRINGE 0 ML IV ONE (19:00)
[2021-12-31 01:44] LABS: Partial Thromboplastin Ratio 2.6
[2021-12-31 02:02] LABS: Partial Thromboplastin Time 71.2 Seconds (21.0-31.0)
[2021-12-31] MEDS ORDERED: ACETAMINOPHEN 325 MG TAB PO STA (02:48)
[2021-12-31 08:03] LABS: Hematocrit (blood only) 43.4 % (34.1-44.9); Hemoglobin 14.6 g/dl (12.0-16.0); Mean Corpuscular Hemoglobin 30.4 pg (25.0-34.0); Mean Corpuscular Hgb Conc 33.6 g/dL (32.0-36.0); Mean Corpuscular Volume 90.2 fL (80.0-100.0); Mean Platelet Volume 9.2 fL (9.4-12.3); Platelet Count 237 K/uL (130-400); RDW Coefficient of Variation 11.9 % (11.5-14.5); RDW Standard Deviation 39.2 fL (36.4-46.3); Red Blood Count 4.81 M/uL (3.93-5.22); White Blood Count 8.08 K/ul (4.8-10.8)
[2021-12-31 08:33] LABS: BUN Creatinine Ratio 11.6 (10-20); Calcium 9.4 mg/dl (8.5-10.1); Creatinine Clr Calc Pharmacy 35.1 ml/min; Est GFR (African American) 72.4 ml/min; Est GFR (Non-African American) 62.5 ml/min; Potassium 3.9 mmol/L (3.5-5.1)
[2021-12-31 08:48] LABS: Partial Thromboplastin Ratio 2.1
[2021-12-31 08:58] LABS: Partial Thromboplastin Time 58.1 Seconds (21.0-31.0)
[2021-12-31] MEDS: HEPARIN SODIUM/DEXTROSE 25,000 UNITS/500 ML BAG IV SCH (09:23)
[2021-12-31] MEDS: dilTIAZem ER 180 MG CAPCR PO SCH (09:28)
--- NOTE | 2021-12-31 11:05 | Surgery Progress Note ---
Date of Service December 31, 2021 Assessment & Plan (1) Small bowel obstruction: Plan: SBO resolved pt wants have Dietitian consult for her instruction diet, pt wants to go home today, pt can be discharged home today F/U DR. Torres 2 weeks, Admission and Anticipated Discharge Date Admission Date: December 29, 2021 Supervising Physician Co-Signing Physician Notes Patient seen and examined, labs and imaging reviewed, agree with above. Transferred to PCU overnight for A. fib with RVR. She has been passing flatus and has no abdominal pain or distention. NG tube been clamped for quite some time. On exam she is afebrile stable vitals. Abdomen soft, nontender, nondistended. KUB with resolution of small bowel obstruction. We will remove NG tube and start on clear liquids. Slowly advance to low fiber diet. Dr. Carrion covering over the weekend. Subjective 81 yo F presented with high grade SBO Tube clamped overnight Doing well today Denies nausea or abdominal pain Improvement on KUB this am 12/31/2021 11:01AM, Dr. Carrion F/U SBO, pt is doing fine, passed gas and BM, tolerated diet, no abdominal pain, no nausea, no vomiting, Physical Exam Constitutional: WD/WN, vitals as above Eyes: PERRL, conjunctivae normal, anicteric sclerae Neck: trachea midline, no thyromegaly Respiratory: normal respiratory effort, lungs clear to auscultation Cardiovascular: A-fib Gastrointestinal (Abdomen): soft, multiple scar, NT, ND, BS + Neurologic: patellar DTR's 2+ bilat, sensation intact Psychiatric: A+Ox3, euthymic affect Results & Data ([facility]) Vital Signs (Past 12 Hours) Vital Signs Temp Pulse Pulse Resp BP Pulse Ox Pulse Ox 12/31/21 08:00 82 12/31/21 08:00 96 12/31/21 05:00 92 12/31/21 03:04 36.7 C 90 18 135/85 96 O2 Del Method O2 Del Method O2 Flow Rate 12/31/21 08:00 12/31/21 08:00 Room Air 12/31/21 05:00 Nasal Cannula 3 12/31/21 03:04 Room Air Laboratory Results Abnormal lab results 12/30/21 12/31/21 12/31/21 Range/Units 17:45 01:05 07:43 MPV 9.2 L (9.4-12.3) fL APTT 36.7 H 71.2 H* (21.0-31.0) Seconds 12/31/21 Range/Units 07:43 MPV (9.4-12.3) fL APTT 58.1 H* (21.0-31.0) Seconds
--- NOTE | 2021-12-31 11:18 | Discharge Summary ---
Discharge Summary Date of Service December 31, 2021 Notes For Next Care Provider Please ensure bowels are moving well Patient would like to touch base with a business management professor for possible diet changes that may help her avoid future SBOs Medication Changes From Visit None Admission HPI Per Admitting Provider HISTORY OF PRESENT ILLNESS: An 81-year-old female with past medical history significant for pancreatic cyst, Lung nodule, chronic kidney disease stage III, history of hypertension, history of permanent atrial fibrillation, history of moderate mitral regurgitation, mild aortic regurgitation, moderate tricuspid regurgitation ,right ventricle, cardiac abnormality, asymptomatic proteinuria, osteoporosis, history of endometrial cancer, status post surgery, history of COVID-19, presents with abdominal pain. The patient had two surgeries for small bowel obstructions. After the second surgery, she moved to [place] with her to be close to her daughter. Symptoms started with a feeling of bloating of the abdomen and nausea. The patient was worried about obstruction and came to the hospital. CAT scan is showing a high-grade obstruction, seen by surgery. Recommended conservative management at this time. The patient denies any headache. No blurred visions. No neck pain. No sore throat. Always has some runny nose. No cough. No chest pain, no shortness of breath. Mild abdominal discomfort. She states she moved her bowels before she came to the hospital. Normal bladder movements. Ambulates okay. Admission Exam Per Admitting Provider PHYSICAL EXAMINATION: GENERAL: The patient is old and frail, not in acute distress. VITAL SIGNS: Temperature 35.6, pulse 90, respiratory rate 12, blood pressure 127/76, and oxygen 95% on room air. HEENT: Pupils equal, round, and reactive to light. Oral mucosa moist. NECK: No JVD. No masses. CARDIOVASCULAR: S1 and S2 heard. Regular rate and rhythm. No murmur, no gallop. RESPIRATORY SYSTEM: Normal AP diameter. No accessory muscle use. No wheezing, no crackles. ABDOMEN: Soft, bowel sounds present, nontender, no distention. CENTRAL NERVOUS SYSTEM: Cranial nerves II through XII are grossly intact, nonfocal. EXTREMITIES: No edema, no erythema. Principal Dx & Hospital Course #1 = Principal Diagnosis (1) Small bowel obstruction: H/o SBO in the past and two surgeries to lyse adhesions. Improved with NG tube in place and no issues with tube clamped overnight, +flatus, no nausea and +BS. Removed NG tube and advanced diet with success. (2) A-fib: Atrial fibrillation with rapid ventricular response overnight. Moved to PCU and started on diltiazem drip, dig IV given. Improved HR to 100s today. She is asymptomatic. Transitioned her back to PO medications now and she was transitioned from heparin drip back to her home Xarelto prior to discharge. Plan At time of discharge she was hemodynamically stable and afebrile and tolerating PO. She was mentating and ambulating at her baseline and was sent home in stable condition with close primary care followup recommended. Discharge Exam CONSTITUTIONAL: WNWD, vitals as above, generally well-appearing, NAD EYES: normal conjunctivae, no scleral icterus, ENT: external ear and nose normal, MMM, NG tube in place NECK: trachea midline RESPIRATORY: clear to auscultation bilaterally, no crackles, rales or wheezes, normal respiratory effort CARDIOVASCULAR: regular rate and rhythm, S1 and 2 heard without murmurs, gallops or rubs, no JVD, no peripheral edema CHEST: inspection of chest was normal GASTROINTESTINAL: soft, nontender, ND, no guarding, +BS MUSCULOSKELETAL: strength 5/5 throughout, head is normocephalic and atraumatic SKIN: warm and dry NEUROLOGIC: CN 2-12 grossly intact, no sensory deficit, normal cognition, normal speech, no tremor PSYCHIATRIC: alert cooperative and oriented to person, place and time. Euthymic mood, makes good eye contact, language grossly intact, recent and remote memory grossly intact. Updated Medication List Medication Instructions Recorded Confirmed Type digoxin 125 mcg (0.125 mg) tablet 125 mcg PO DAILY 12/29/21 12/29/21 History diltiazem HCl 360 mg 360 mg PO DAILY 12/29/21 12/29/21 History capsule,extended release 24 hr lisinopril 5 mg tablet 5 mg PO DAILY 12/29/21 12/29/21 History rivaroxaban 15 mg tablet (Xarelto) 15 mg PO DAILY 12/29/21 12/31/21 History Hospital Stay Data Consultations 12/29/21 02:22 ED Decision to Admit Stat Diagnostic Imagining Performed 12/28/21 23:36 CT abd pelvis IV con only Urgent Pending Results Patient Have Any Pending Studies at Discharge: No Discharge Instructions Given to Patient (Per Discharging Provider) Please take all medications per medication list below. You were hospitalized with a small bowel obstruction, likely related to scar tissue in your abdomen. It is recommended that you follow-up with Dr. Bingham in one week to touch base and enure everything is going well since returning home. It was a pleasure taking care of you! Please call if you have any questions or problems. You can reach a [facility] hospitalist on duty at [facility] 24 hours a day by calling [phone]. Take care of yourself. Kelli Alarcon DO [facility] Hospitalist Total Time Total Time Spent Total Time Spent (In Minutes): 60
[2021-12-31] MEDS ORDERED: RIVAROXABAN 15 MG TAB PO ONE (11:30)
== END 2021-12-31 12:18 | disposition home or self-care (01) | DRG 389 ==
LOC: ED 23:13 → 2N 12-29 03:33 → 2S 12-30 05:16